=== PATIENT | male | born 1980 | race Caucasian/White ===

== ENCOUNTER 2020-06-14 15:58 | Emergency (ER) | payer OTHER ==
[~2020-06-14] VITALS: Ht 182.9 cm; Wt 77.0 kg
[2020-06-14 15:58] VITALS: BP 140/80
[2020-06-14 16:46] LABS: CALCIUM 9.1 mg/dL (8.5-10.1); CREATININE 1.2 mg/dL (0.7-1.3); GFR 66.7; POTASSIUM 3.9 mmol/L (3.5-5.1)
[2020-06-14 16:48] LABS: ALBUMIN 4.1 g/dL (3.4-5.0); MAGNESIUM 2.3 mg/dL (1.8-2.4); TOTAL BILIRUBIN 1.1 mg/dL (0.2-1.0); TOTAL PROTEIN 8.3 g/dL (6.4-8.2)
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
--- NOTE | 2020-06-14 18:53 | EKG ---
[facility] [address] [place] [address] Test Date: 2020-06-14 Test Time: 16:35:00 Pat Name: DESHAUN DEY Department: Room: Gender: M Time Study Clerk: : 1980 Requested By: JOHANNA RIDER Order Number: [id number] Reading MD: Measurements Intervals [place] Rate: 83 P: 47 WI: 128 QRS: 81 QRSD: 86 T: 43 QT: 370 QTc: 435 Interpretive Statements SINUS RHYTHM S1,S2,S3 PATTERN INCOMPLETE RIGHT BUNDLE BRANCH BLOCK NO SPECIFIC ECG ABNORMALITIES RI6.01 No previous ECG available for comparison
== END 2020-06-14 18:00 | disposition home or self-care (01) ==
LOC: ER 15:58
DX: G40.802 Other epilepsy, not intractable, without status epilepticus (principal)
CPT/HCPCS: 80053; 80177; 83735; 93005; 99283